=== PATIENT | female | born 1960 | race African-American/Black ===

== ENCOUNTER 2017-02-27 20:44 | Emergency (ER) | payer MEDICAID, OTHER ==
[~2017-02-27] VITALS: Ht 165.1 cm; Wt 79.0 kg
[~2017-02-27 20:44] MED LIST: ALBUTEROL; BECL8.7A5; FERR134T2 PO
[2017-02-28] MEDS ORDERED: KETOROLAC 30MG/ML VIAL IM ONE (03:15)
[2017-02-28] MEDS ORDERED: ONDANSETRON 4MG ODT PO ONE (03:15)
[2017-02-28] MEDS ORDERED: HYDROCODONE/APAP 7.5/325MG 1 TAB TABLET PO ONE (04:15)
[2017-02-28 06:57] VITALS: BP 132/78
== END 2017-02-28 07:00 | disposition home or self-care (01) ==
LOC: ER 02-28 01:02
DX: S39.012A Strain of muscle, fascia and tendon of lower back, initial encounter (principal); S16.1XXA Strain of muscle, fascia and tendon at neck level, initial encounter; I10 Essential (primary) hypertension; Z88.1 Allergy status to other antibiotic agents; V89.2XXA Person injured in unspecified motor-vehicle accident, traffic, initial encounter; Y93.89 Activity, other specified; Y92.89 Other specified places as the place of occurrence of the external cause; Y99.8 Other external cause status
CPT/HCPCS: 72100; 72125; 96372; 99284; J1885; Q0162; Z7610

== ENCOUNTER 2020-12-11 19:26 | Inpatient (IN) | payer MEDICAID, OTHER ==
[~2020-12-11] VITALS: Ht 165.1 cm; Wt 87.1 kg
[2020-12-11] MEDS ORDERED: ASPIRIN 325MG EC TABLET PO ONE (20:30)
[2020-12-11 20:50] LABS: BASOPHILS % 0.7 % (0.0-2.0); HEMATOCRIT. 34.9 % (36.0-48.0); HEMOGLOBIN. 11.8 g/dL (12.0-16.0); LYMPHOCYTES % 20.9 % (20.0-50.0); MEAN CORPUSCULAR HEMOGLOBIN 28.8 pg (28.0-32.0); MEAN CORPUSCULAR VOLUME 85.2 fL (81.0-99.0); MEAN PLATELET VOLUME 8.2 fl (7.4-10.4); MONOCYTES % 6.9 % (2.0-8.0); NEUTROPHILS % 70.5 % (40.0-76.0); PLATELET 234 x1000/uL (130-400); RED BLOOD CELL COUNT 4.09 mill/uL (4.2-5.4); RED CELL DISTRIBUTION WIDTH 13.2 % (11.6-14.6)
[2020-12-11 20:58] LABS: D-DIMER 0.3 mg/L FEU (<0.50)
[2020-12-11 21:00] LABS: CHLORIDE 110 mEq/L (98-107)
[2020-12-12] MEDS ORDERED: ACETAMINOPHEN 325MG TABLET PO PRN (04:45)
[2020-12-12] MEDS ORDERED: ONDANSETRON HCL 4MG/2ML INJ IV PRN (04:45)
[2020-12-12] MEDS ORDERED: MORPHINE SULFATE 2 MG/ML CPJ (NOT FOR IM USE) IV PRN (04:45)
[2020-12-12] MEDS ORDERED: AMLO5TAB4 PO (05:43)
[2020-12-12 06:00] VITALS: BP 113/69
[2020-12-12] MEDS: ENOXAPARIN 40MG/0.4ML SYR SUBCUT SCH (09:35)
[2020-12-12] MEDS ORDERED: HYDROCODONE/ACETAMINOPHEN 5/325MG TABLET PO PRN (12:15)
[2020-12-12 12:30] VITALS: BP_SYST 105; BP_SYST 118; BP_SYST 121; BP_DIAS 56; BP_DIAS 68; BP_DIAS 71
[2020-12-12] MEDS ORDERED: KETOROLAC 15MG/ML VIAL IV PRN (13:15)
[2020-12-12 15:24] LABS: *AMPHETAMINES SCREEN URINE NEGATIVE (NEGATIVE); *BARBITURATES SCREEN URINE NEGATIVE (NEGATIVE); *BENZODIAZEPINES SCREEN URINE NEGATIVE (NEGATIVE); CANNABINOID URINE SCREEN NEGATIVE (NEGATIVE); OPIATES URINE SCREEN PRESUMTIVE POSITIVE (NEGATIVE); PHENCYCLIDINE URINE SCREEN NEGATIVE (NEGATIVE)
[2020-12-12 15:25] LABS: *COCAINE SCREEN URINE NEGATIVE (NEGATIVE); METHADONE URINE SCREEN NEGATIVE (NEGATIVE)
[2020-12-12 16:00] VITALS: BP 109/70
[2020-12-12 20:00] VITALS: BP 115/73
[2020-12-12 20:50] VITALS: BP_SYST 126; BP_SYST 128; BP_DIAS 68; BP_DIAS 77
[2020-12-13 00:29] VITALS: BP 105/62
[2020-12-13 04:00] VITALS: BP 112/68
[2020-12-13 08:00] VITALS: BP_SYST 109; BP_SYST 114; BP_SYST 122; BP_DIAS 69; BP_DIAS 71; BP_DIAS 76
[2020-12-13] MEDS: ENOXAPARIN 40MG/0.4ML SYR SUBCUT SCH (08:37)
[2020-12-13 12:00] VITALS: BP 145/85
[2020-12-13 12:30] VITALS: BP 127/76
[2020-12-13 14:08] VITALS: BP 119/70
[2020-12-13] MEDS ORDERED: HYDR-4001 PO (14:13)
== END 2020-12-13 16:17 | disposition home or self-care (01) | DRG 48 ==
LOC: ER 19:26 → 6WST 12-12 00:44 → ENRESERV 12-12 03:21
PROVIDERS: ADMIT Internal Medicine; ATTEND Internal Medicine
DX: G90.8 Other disorders of autonomic nervous system (principal); E87.8 Other disorders of electrolyte and fluid balance, not elsewhere classified; R07.89 Other chest pain; D64.9 Anemia, unspecified; I10 Essential (primary) hypertension; M19.09 Primary osteoarthritis, other specified site; J45.909 Unspecified asthma, uncomplicated; G89.29 Other chronic pain; M25.512 Pain in left shoulder; Z79.899 Other long term (current) drug therapy; Z88.1 Allergy status to other antibiotic agents
CPT/HCPCS: 36415; 71045; 73030; 80053; 80305; 83880; 84484; 85025; 85379; 93005; 93306; 99285; J1650; J2270

== ENCOUNTER 2021-05-05 07:11 | Emergency (ER) | payer OTHER ==
[~2021-05-05] VITALS: Ht 165.1 cm; Wt 78.0 kg
[~2021-05-05 07:11] MED LIST changes: +AMLO5TAB4 PO; +HYDR-4001 PO
[2021-05-05] MEDS ORDERED: ASPIRIN 81MG TABLET PO ONE (07:45)
[2021-05-05] MEDS ORDERED: NITROGLYCERIN 0.4MG TABLET SL SL PRN (07:45)
[2021-05-05 08:15] LABS: BASOPHILS % 0.6 % (0.0-2.0); EOSINOPHILS % 3.7 % (0.0-5.0); HEMATOCRIT. 36.4 % (36.0-48.0); HEMOGLOBIN. 11.9 g/dL (12.0-16.0); LYMPHOCYTES % 23.5 % (20.0-50.0); MEAN CORPUSCULAR VOLUME 88.9 fL (81.0-99.0); MEAN PLATELET VOLUME 8.5 fl (7.4-10.4); MONOCYTES % 8.5 % (2.0-8.0); NEUTROPHILS % 63.7 % (40.0-76.0); PLATELET 212 x1000/uL (130-400); RED BLOOD CELL COUNT 4.09 mill/uL (4.2-5.4)
[2021-05-05 08:21] LABS: CHLORIDE 107 mEq/L (98-107)
[2021-05-05] MEDS ORDERED: KETOROLAC 15MG/ML VIAL IV ONE (10:15)
[2021-05-05 12:15] LABS: CREATINE KINASE 91 IU/L (26-192)
[2021-05-05 12:16] LABS: CREATINE KINASE MB FRACTION < 1.0 ng/mL (0.5-3.6)
[2021-05-05] MEDS ORDERED: MORPHINE SULFATE 2 MG/ML CPJ (NOT FOR IM USE) IV PRN (14:00)
[2021-05-05] MEDS ORDERED: HYDRALAZINE 20MG/ML VIAL IV PRN (14:00)
[2021-05-05 14:11] VITALS: BP 139/82
[2021-05-05] MEDS ORDERED: NALOXONE HCL 0.4MG/ML VIAL IV PRN (14:15)
[2021-05-05] MEDS ORDERED: IOHEXOL-350 100 ML BOTTLE ONE (14:17)
== END 2021-05-05 14:32 | disposition short-term general hospital (02) ==
LOC: ER 07:11 → SUPCPDRO 11:44 → ER 14:32
DX: R07.89 Other chest pain (principal); I20.0 Unstable angina; M54.9 Dorsalgia, unspecified; G89.29 Other chronic pain; J45.909 Unspecified asthma, uncomplicated; I10 Essential (primary) hypertension; E66.9 Obesity, unspecified; Z88.1 Allergy status to other antibiotic agents
CPT/HCPCS: 36415; 70450; 71045; 71275; 80053; 82550; 82553; 83880; 84484; 85025; 93005; 96374; 99285; J1885; Q9967; Z7610

== ENCOUNTER 2021-10-10 11:12 | Emergency (ER) | payer OTHER ==
[~2021-10-10] VITALS: Ht 172.7 cm; Wt 80.0 kg
[2021-10-10 12:16] LABS: BASOPHILS % 0.8 % (0.0-2.0); EOSINOPHILS % 4.3 % (0.0-5.0); HEMATOCRIT. 36.5 % (36.0-48.0); HEMOGLOBIN. 12.1 g/dL (12.0-16.0); LYMPHOCYTES % 28.5 % (20.0-50.0); MEAN CORPUSCULAR HEMOGLOBIN 29.2 pg (28.0-32.0); MEAN CORPUSCULAR VOLUME 87.7 fL (81.0-99.0); MEAN PLATELET VOLUME 8.6 fl (7.4-10.4); MONOCYTES % 8.6 % (2.0-8.0); NEUTROPHILS % 57.8 % (40.0-76.0); PLATELET 184 x1000/uL (130-400); RED BLOOD CELL COUNT 4.16 mill/uL (4.2-5.4); RED CELL DISTRIBUTION WIDTH 13.5 % (11.6-14.6)
[2021-10-10 12:19] LABS: CHLORIDE 110 mEq/L (98-107)
[2021-10-10 22:25] VITALS: BP 140/69
== END 2021-10-10 23:03 | disposition short-term general hospital (02) ==
LOC: ER 11:12
DX: R55 Syncope and collapse (principal); I11.0 Hypertensive heart disease with heart failure; I50.9 Heart failure, unspecified; E11.9 Type 2 diabetes mellitus without complications; G62.89 Other specified polyneuropathies; Z88.1 Allergy status to other antibiotic agents
CPT/HCPCS: 36415; 71045; 80053; 83880; 84484; 85025; 93005; 99285

== ENCOUNTER 2021-12-15 14:27 | Emergency (ER) | payer OTHER ==
[~2021-12-15] VITALS: Ht 165.1 cm; Wt 79.0 kg
[2021-12-15] MEDS ORDERED: MAGNESIUM/ALUMINUM HYDROXIDE/SIMETHICONE 30ML UDC PO ONE (14:45)
[2021-12-15 15:58] LABS: BASOPHILS % 0.5 % (0.0-2.0); EOSINOPHILS % 0.9 % (0.0-5.0); HEMATOCRIT. 39.1 % (36.0-48.0); HEMOGLOBIN. 12.7 g/dL (12.0-16.0); LYMPHOCYTES % 14.8 % (20.0-50.0); MEAN CORPUSCULAR HEMOGLOBIN 29.2 pg (28.0-32.0); MEAN CORPUSCULAR VOLUME 89.6 fL (81.0-99.0); MEAN PLATELET VOLUME 8.1 fl (7.4-10.4); MONOCYTES % 4.6 % (2.0-8.0); NEUTROPHILS % 79.2 % (40.0-76.0); PLATELET 232 x1000/uL (130-400); RED BLOOD CELL COUNT 4.36 mill/uL (4.2-5.4); RED CELL DISTRIBUTION WIDTH 14.1 % (11.6-14.6)
[2021-12-15 16:12] LABS: CLARITY URINE CLOUDY (CLEAR); COLOR URINE YELLOW (YELLOW); KETONES URINE NEGATIVE (NEGATIVE); LEUKOCYTE ESTERASE URINE NEGATIVE (NEGATIVE); NITRITE URINE NEGATIVE (NEGATIVE); OCCULT BLOOD URINE NEGATIVE (NEGATIVE); PROTEIN URINE 1+ (NEGATIVE); SPECIFIC GRAVITY URINE 1.023 (1.005-1.030); UROBILINOGEN URINE 0.2 E.U./dL (0.2-1.0)
[2021-12-15 17:44] LABS: CHLORIDE 102 mEq/L (98-107)
[2021-12-15] MEDS ORDERED: OMEP40CA20 MT (21:11)
[2021-12-15 21:26] VITALS: BP 122/75
== END 2021-12-15 21:26 | disposition home or self-care (01) ==
LOC: ER 14:27
DX: R55 Syncope and collapse (principal); R10.9 Unspecified abdominal pain; J45.909 Unspecified asthma, uncomplicated; I11.0 Hypertensive heart disease with heart failure; I50.9 Heart failure, unspecified; E11.9 Type 2 diabetes mellitus without complications; Z88.3 Allergy status to other anti-infective agents
CPT/HCPCS: 36415; 71045; 74176; 80053; 81003; 85025; 93005; 99285

== ENCOUNTER 2022-10-20 07:05 | Emergency (ER) | payer MEDICARE, OTHER ==
[~2022-10-20] VITALS: Ht 170.2 cm; Wt 82.0 kg
[~2022-10-20 07:05] MED LIST changes: +OMEP40CA20 MT
[2022-10-20] MEDS ORDERED: LIDOCAINE 5% PATCH TOP ONE (08:30)
[2022-10-20] MEDS ORDERED: ACETAMINOPHEN 325MG TABLET PO ONE (08:30)
[2022-10-20] MEDS ORDERED: MORPHINE SULFATE 10 MG/ML CPJ IM ONE (08:30)
[2022-10-20] MEDS ORDERED: T3 PO (08:34)
[2022-10-20] MEDS ORDERED: LIDO700A15 TP (08:34)
[2022-10-20 08:54] VITALS: BP 160/74
== END 2022-10-20 09:03 | disposition home or self-care (01) ==
LOC: ER 07:05
DX: M54.41 Lumbago with sciatica, right side (principal); I11.0 Hypertensive heart disease with heart failure; I50.9 Heart failure, unspecified; E11.9 Type 2 diabetes mellitus without complications; J45.909 Unspecified asthma, uncomplicated
CPT/HCPCS: 96372; 99283; J2270